=== PATIENT | male | born 1955 | race Caucasian/White ===

== ENCOUNTER 2018-03-11 15:17 | Emergency (ER) | payer OTHER ==
[~2018-03-11] VITALS: Ht 170.2 cm; Wt 116.6 kg
[2018-03-11 15:18] VITALS: Ht 170.2 cm; Wt 116.6 kg
[2018-03-11 15:57] LABS: BASOPHIL % 0.3 % (0-2)
[2018-03-11 16:00] LABS: PLATELET COUNT 719 x10^3mcL (130-400)
[2018-03-11 16:02] LABS: ALBUMIN 3.6 g/dL (3.4-5.0); ALKALINE PHOSPHATASE 83 U/L (46-116); ALT/SGPT 24 U/L (16-63); AST/SGOT 30 U/L (15-37); BILIRUBIN TOTAL 0.46 mg/dL (0.20-1.00); CALCIUM 8.8 mg/dL (8.5-10.1); CARBON DIOXIDE 30.2 mmol/L (21-32); CHLORIDE SERUM 98 mmol/L (98-107); CREATININE SERUM 0.9 mg/dL (0.7-1.3); GFR1 > 60 mL/min; GLUCOSE SERUM 137 mg/dL (74-106); SODIUM SERUM 136 mmol/L (136-145); TOTAL PROTEIN, SERUM 8.1 g/dL (6.4-8.2)
[2018-03-11 16:04] LABS: POTASSIUM SERUM 2.6 mmol/L (3.5-5.1)
[2018-03-11 19:15] LABS: microscopic required? NO
[2018-03-11 19:21] LABS: UA SPECIFIC GRAVITY <=1.005 (1.005-1.035); urine erythrocyte NEGATIVE (NEGATIVE)
[2018-03-12 02:13] VITALS: BP 124/76
== END 2018-03-12 02:56 | disposition short-term general hospital (02) ==
LOC: ED 15:17
PROVIDERS: Emergency Medicine
DX: I26.99 Other pulmonary embolism without acute cor pulmonale (principal); K91.89 Other postprocedural complications and disorders of digestive system; E87.6 Hypokalemia; K21.9 Gastro-esophageal reflux disease without esophagitis; I10 Essential (primary) hypertension; Z91.013 Allergy to seafood
CPT/HCPCS: 82962; 83880; J1644; J2270; J2405; J2543; J3480; J7040; Q9967

== ENCOUNTER 2020-01-31 01:41 | Emergency (ER) | payer OTHER ==
[~2020-01-31] VITALS: Ht 167.6 cm; Wt 131.5 kg
[~2020-01-31 01:41] MED LIST: DULOXETINE HYDR60 MG PO; GRALISE600 MG PO; MEDROL DOSEPAK4 MG PO; NORTRIPTYLINE H25 M1 PO; NUCYNTA50 MG PO; OXYCODONE HYDRO15 MG PO; TOPROL XL50 MG PO; VENTOLIN H0.09 MG/A1 IH; ZITHROMAX TRI-500 MG PO
[2020-01-31 01:59] VITALS: Ht 167.6 cm; Wt 131.5 kg
[2020-01-31 04:44] LABS: BASOPHIL % 0.7 % (0-2); PLATELET COUNT 321 x10^3mcL (130-400); RED CELL DISTRIBUTION WIDTH 17.5 % (11.5-14.5)
[2020-01-31 05:27] LABS: CALCIUM 8.2 mg/dL (8.5-10.1); CARBON DIOXIDE 23.6 mmol/L (21-32); CHLORIDE SERUM 101 mmol/L (98-107); CREATININE SERUM 0.9 mg/dL (0.7-1.3); GFR1 > 60 mL/min; GLUCOSE SERUM 142 mg/dL (74-106); POTASSIUM SERUM 4.1 mmol/L (3.5-5.1); SODIUM SERUM 134 mmol/L (136-145)
[2020-01-31 05:30] LABS: TOTAL PROTEIN, SERUM 6.7 g/dL (6.4-8.2)
[2020-01-31 05:31] LABS: ALBUMIN 3.2 g/dL (3.4-5.0); ALKALINE PHOSPHATASE 76 U/L (46-116); ALT/SGPT 36 U/L (16-63); AST/SGOT 17 U/L (15-37); BILIRUBIN TOTAL 0.55 mg/dL (0.20-1.00)
[2020-01-31 05:58] VITALS: BP 113/74
== END 2020-01-31 05:58 | disposition home or self-care (01) ==
LOC: ED 01:41
PROVIDERS: Emergency Medicine
DX: R55 Syncope and collapse (principal)
CPT/HCPCS: Q0092